=== PATIENT | female | born 1995 | race Caucasian/White ===

== ENCOUNTER 2022-10-08 20:37 | Emergency (ER) | payer MEDICAID, OTHER ==
[~2022-10-08] VITALS: Ht 165.1 cm; Wt 92.0 kg
[2022-10-08 20:43] VITALS: BP 116/60; PULSE 82; RESP 20; TEMP 98.4
== END 2022-10-08 22:34 | disposition left against medical advice (07) ==
LOC: EMS 20:38
DX: R10.9 Unspecified abdominal pain (principal); Z53.21 Procedure and treatment not carried out due to patient leaving prior to being seen by health care provider
CPT/HCPCS: 99281; Z7502